=== PATIENT | female | born 2000 ===

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

== ENCOUNTER 2022-01-21 10:12 | Inpatient (IN) ==
[2022-01-21 11:30] LABS: Urine Appearance Cloudy; Urine Bilirubin Negative (Negative); Urine Blood 1+ (Negative); Urine Color Yellow; Urine Glucose Negative (Negative); Urine Ketones Negative (Negative); Urine Nitrite Negative (Negative); Urine Protein Negative (Negative); Urine Specific Gravity 1.005 (1.002-1.030); Urine Urobilinogen Negative (Negative)
[2022-01-21 11:39] LABS: Urine Benzodiazepine Screen None Detected (None Detect); Urine Cannabinoids Screen None Detected (None Detect); Urine Opiates Screen None Detected (None Detect)
[2022-01-21 11:41] LABS: Urine Bacteria 1+ (Absent); Urine Red Blood Cell 1+(3-5/hpf) (Absent); Urine Squamous Epithelial Cell Present (Absent); Urine White Blood Cell Trace(0-5/hpf) (Absent)
[2022-01-21 16:45] LABS: ABS Eosinophils 0.1 10^3/ul (0-0.6); ABS Monocytes 0.5 10^3/ul (0-0.8); Eosinophil % 0.9 %; Hematocrit 37 % (35-47); Hemoglobin 12.5 g/dL (12.0-16.0); Lymphocyte % 35.5 %; Mean Corpuscular HGB Conc 33 g/dL (31-36); Mean Corpuscular Hemoglobin 30 pg (27-31); Mean Corpuscular Volume 89 fL (80-97); Mean Platelet Volume 9.2 fL (7.4-10.4); Platelet Count 274 10^3/uL (150-450); Red Blood Count 4.18 10^6 /uL (3.70-4.87); Red Cell Distribution Width 12 % (10-15); White Blood Count 5.6 10^3/uL (3.5-10.8)
[2022-01-21] MEDS ORDERED: Al Hydrox/Mg Hydrox/Simet LIQ 30 ML UDC PO PRN (16:48)
[2022-01-21 17:13] LABS: ALT 12 U/L (7-52); AST 15 U/L (13-39); Acetaminophen < 15 mcg/mL; Albumin 4.2 g/dL (3.2-5.2); Albumin/Globulin Ratio 1.7 (1-3); Alcohol, S < 13 mg/dL (<13); Alkaline Phosphatase 47 U/L (35-149); Anion Gap 5 mmol/L (2-11); Blood Urea Nitrogen 7 mg/dL (6-24); CO2 Carbon Dioxide 27 mmol/L (22-32); Calcium 9.1 mg/dL (8.6-10.3); Chloride 106 mmol/L (101-111); Globulin 2.5 g/dL (2-4); Glucose 87 mg/dL (70-100); Salicylate < 2.50 mg/dL (<30); Sodium 138 mmol/L (135-145); Total Protein 6.7 g/dL (6.4-8.9); eGFR CKD-EPI 134.7 (>60)
[2022-01-21 17:20] LABS: HCG Pregnancy < 0.60 mIU/mL
[2022-01-21 17:29] LABS: TSH Ultra Thyroid Stim Horm 2.18 mcIU/mL (0.34-5.60)
[2022-01-21] MEDS ORDERED: LARIN FE PO SCH (21:00)
[2022-01-22] MEDS: Vitamin THERAPEUTIC TAB PO SCH (09:06)
[2022-01-22] MEDS: [UNRECOGNIZED DRUG - OTHER] PO SCH (17:47)
[2022-01-23 08:38] LABS: HDL Cholesterol 48.2 mg/dL
[2022-01-23] MEDS: Vitamin THERAPEUTIC TAB PO SCH (08:45)
[2022-01-23] MEDS: [UNRECOGNIZED DRUG - OTHER] PO SCH (18:37)
[2022-01-24] MEDS: Vitamin THERAPEUTIC TAB PO SCH (08:41)
[2022-01-24] MEDS: [UNRECOGNIZED DRUG - OTHER] PO SCH (18:16)
[2022-01-25 08:30] VITALS: BP 111/65
[2022-01-25] MEDS: Vitamin THERAPEUTIC TAB PO SCH ×2 (09:06→09:07)
== END 2022-01-25 15:56 | disposition home or self-care (01) | DRG 751 ==
LOC: ED 10:12 → BSU 17:00
PROVIDERS: ADMIT Psychiatry & Neurology Psychiatry; ATTEND Psychiatry & Neurology Psychiatry